=== PATIENT | male | born 1995 | race Two or more races ===

== ENCOUNTER 2022-07-27 23:42 | Emergency (ER) | payer OTHER ==
[~2022-07-27] VITALS: Ht 177.8 cm; Wt 88.0 kg
[2022-07-27 23:49] VITALS: BP 138/79
== END 2022-07-28 04:33 | disposition home or self-care (01) ==
LOC: ER 23:42
DX: R07.89 Other chest pain (principal); R20.0 Anesthesia of skin; Z20.822 Contact with and (suspected) exposure to COVID-19
CPT/HCPCS: 71045; 87426; 87804; 93005; 99285; C9803